=== PATIENT | male | born 1965 | race Two or more races ===

== ENCOUNTER 2017-02-11 17:06 | Emergency (ER) | payer OTHER, BC ==
--- NOTE | 2017-02-11 18:00 | RAD ---
SHOULDER-RIGHT 2 OR MORE VIEWS History: Lifting injury with shoulder pain. Comparison: None. Findings: The osseous structures appear to be intact with no discrete fracture visualized. The glenohumeral alignment appears to be within expected. The acromiohumeral distance is well maintained. No soft tissue calcifications are identified. The acromioclavicular joint is not widened. The included lung field appears to be unremarkable. Impression: 1. Negative views of the right shoulder.
== END 2017-02-11 19:18 | disposition home or self-care (01) ==
LOC: ED 17:06
DX: S46.911A Strain of unspecified muscle, fascia and tendon at shoulder and upper arm level, right arm, initial encounter (principal); E11.9 Type 2 diabetes mellitus without complications; Z79.4 Long term (current) use of insulin; X50.0XXA Overexertion from strenuous movement or load, initial encounter; Y92.69 Other specified industrial and construction area as the place of occurrence of the external cause; Y99.0 Civilian activity done for income or pay